=== PATIENT | male | born 2000 | race Caucasian/White ===

== ENCOUNTER 2022-11-03 12:52 | Inpatient (IN) | payer MEDICAID ==
[~2022-11-03] VITALS: Ht 172.7 cm; Wt 58.5 kg
[2022-11-03] MEDS ORDERED: HALOPERIDOL 5 MG TABLET PO PRN (13:30)
[2022-11-03] MEDS ORDERED: LORazepam 2 MG TABLET PO PRN (13:30)
[2022-11-03 15:52] VITALS: BP 103/71
[2022-11-03 16:43] VITALS: BP 101/66
[2022-11-03 20:05] VITALS: BP 92/49
[2022-11-03 21:03] VITALS: BP 94/53
[2022-11-04 00:15] VITALS: BP 123/67
[2022-11-04] MEDS: ZOLPIDEM TARTRATE 10 MG TABLET PO PRN (02:16)
[2022-11-04 04:16] VITALS: BP 119/66
[2022-11-04 07:29] LABS: BASOPHILS % (AUTO) 0.5 % (0.0-2.0); EOSINOPHILS % (AUTO) 2.1 % (1.0-6.0); HEMATOCRIT 39.8 % (41-53); HEMOGLOBIN 13.3 g/dL (13.5-17.5); LYMPHOCYTES # (AUTO) 1.6 K/uL (1.0-4.8); LYMPHOCYTES % (AUTO) 19.8 % (22.0-44.0); MEAN CORPUSCULAR HEMOGLOBIN 30.6 pg (26.0-34.0); MEAN CORPUSCULAR HGB CONC 33.5 G/dL (31.0-37.0); MEAN CORPUSCULAR VOLUME 91 fL (80-100); MONOCYTES # (AUTO) 0.6 K/uL (0.1-1.0); MONOCYTES % (AUTO) 7.4 % (2.0-9.0); NEUTROPHILS # (AUTO) 5.7 K/uL (1.8-7.7); NEUTROPHILS % (AUTO) 70.2 % (40.0-70.0); PLATELET COUNT (AUTO) 242 K/uL (150-450); RED BLOOD CELL COUNT(AUTO) 4.37 MIL/uL (4.50-5.90); RED CELL DISTRIBUTION WIDTH 13.2 % (11.5-14.5)
[2022-11-04 07:46] LABS: HEMOGLOBIN A1C 4.9 % (3.8-5.6)
[2022-11-04 08:10] LABS: ALANINE AMINOTRANSFERASE 10 U/L (12-78); ALBUMIN 3.4 g/dL (3.4-5.0); ALKALINE PHOSPHATASE 65 U/L (46-116); ANION GAP 7 mmol/L (8-16); ASPARTATE AMINOTRANSFERASE 14 U/L (15-37); BILIRUBIN,TOTAL 0.6 mg/dL (0.1-1.0); CALCIUM, TOTAL 8.4 mg/dL (8.8-10.5); CARBON DIOXIDE 27 mmol/L (22-29); CHLORIDE 104 mmol/L (98-107); CHOL/HDL RATIO 2.4 (4.2-7.3); CHOLESTEROL 88 mg/dL (131-200); CREATININE 0.78 mg/dL (0.60-1.30); FREE T4 (FREE THYROXINE) 0.95 ng/dL (0.76-1.46); GLOMERULAR FILTR. RATE CALC > 60 mL/min (>60); GLUCOSE,RANDOM 104 mg/dL (70-110); HDL CHOLESTEROL 36 mg/dL (40-60); LDL CHOL (CALC.) 47 mg/dL (0-130); POTASSIUM 3.6 mmol/L (3.5-5.1); SODIUM SERUM 138 mmol/L (136-145); TOTAL PROTEIN, SERUM 6.8 g/dL (6.4-8.2); TRIGLYCERIDES 24 mg/dL (15-150)
[2022-11-04 08:15] LABS: APPEARANCE,URINE CLEAR (CLEAR); BILIRUBIN,URINE NEGATIVE (NEGATIVE); GLUCOSE, URINE (UA) NEGATIVE (NEGATIVE); KETONES,URINE NEGATIVE (NEGATIVE); LEUKOCYTE ESTERASE ,URINE NEGATIVE (NEGATIVE); NITRATE,URINE NEGATIVE (NEGATIVE); OCCULT BLOOD,URINE NEGATIVE (NEGATIVE); PH,URINE 6.5 (5.0-8.0); PROTEIN,URINE NEGATIVE (NEGATIVE); SPECIFIC GRAVITIY, URINE 1.014 (1.003-1.030); UROBILINOGEN,URINE <=1.0 mg/dL (<=1.0)
[2022-11-04 08:22] LABS: AMPHET/METH SCREEN,URINE NEGATIVE (NEGATIVE); BARBITURATE SCREEN, URINE NEGATIVE (NEGATIVE); BENZODIAZEPINES SCREEN,URINE NEGATIVE (NEGATIVE); CANNABINOID SCREEN,URINE NEGATIVE (NEGATIVE); COCAINE SCREEN,URINE NEGATIVE (NEGATIVE); METHADONE SCREEN, URINE NEGATIVE (NEGATIVE); OPIATE SCREEN,URINE NEGATIVE (NEGATIVE); PHENCYCLIDINE SCREEN,URINE NEGATIVE (NEGATIVE)
[2022-11-04 08:37] VITALS: BP 102/54
[2022-11-04 12:03] VITALS: BP 116/66
[2022-11-04] MEDS: SERTRALINE HCL 50 MG TABLET PO SCH (12:57)
[2022-11-04] MEDS: LevETIRAcetam 250 MG TABLET PO SCH (16:05)
[2022-11-04 17:31] VITALS: BP 115/65
[2022-11-04 20:14] VITALS: BP 109/71
[2022-11-05] MEDS: ZOLPIDEM TARTRATE 10 MG TABLET PO PRN (00:59)
[2022-11-05 08:20] VITALS: BP 110/76
[2022-11-05] MEDS: LevETIRAcetam 250 MG TABLET PO SCH ×2 (08:58→16:33)
[2022-11-05] MEDS: SERTRALINE HCL 50 MG TABLET PO SCH (08:58)
[2022-11-05 20:14] VITALS: BP 107/62
[2022-11-06] MEDS: ZOLPIDEM TARTRATE 10 MG TABLET PO PRN (02:07)
[2022-11-06 09:16] VITALS: BP 110/58
[2022-11-06] MEDS: SERTRALINE HCL 50 MG TABLET PO SCH (09:19)
[2022-11-06] MEDS: LevETIRAcetam 250 MG TABLET PO SCH (09:19)
[2022-11-06] MEDS ORDERED: LEVE250T PO (09:53)
[2022-11-06] MEDS ORDERED: SERT-439 PO (09:53)
== END 2022-11-06 12:40 | disposition home or self-care (01) | DRG 751 ==
LOC: B2S 15:51
PROVIDERS: ADMIT Psychiatry & Neurology Psychiatry; ATTEND Psychiatry & Neurology Psychiatry
DX: F33.2 Major depressive disorder, recurrent severe without psychotic features (principal); G40.909 Epilepsy, unspecified, not intractable, without status epilepticus; R45.851 Suicidal ideations; I95.9 Hypotension, unspecified; F10.10 Alcohol abuse, uncomplicated; D64.9 Anemia, unspecified; T42.6X2A Poisoning by other antiepileptic and sedative-hypnotic drugs, intentional self-harm, initial encounter; Z79.899 Other long term (current) drug therapy; Z91.51 Personal history of suicidal behavior; Y92.89 Other specified places as the place of occurrence of the external cause
CPT/HCPCS: 80053; 80061; 80307; 81003; 83036; 84436; 84439; 84443; 85025; 86592; G0480; G0482